=== PATIENT | female | born 1965 | race Caucasian/White ===

== ENCOUNTER → 2022-07-28 | Outpatient (CLI) | payer BC | LOC: COL.VAS 10:00 | DX: Z01.89 Encounter for other specified special examinations (principal) ==

== ENCOUNTER 2022-08-23 10:34 | Day surgery (SDC) | payer BC ==
[~2022-08-23] VITALS: Ht 165.1 cm; Wt 86.4 kg
[2022-08-23 11:53] VITALS: BP 164/72; PULSE 73; TEMP 99
[2022-08-23] MEDS ORDERED: TYLENOL 500MG500 MG PO (11:57)
[2022-08-23] MEDS ORDERED: ZOFRAN 4MG T4 MG/TAB PO (11:57)
[2022-08-23] MEDS ORDERED: NORCO 325 MG-51 TAB (11:58)
[2022-08-23] MEDS ORDERED: ELIQUIS 5MG PO (11:59)
[2022-08-23] MEDS ORDERED: SENNA-LAX8.6 MG PO (11:59)
[2022-08-23] MEDS ORDERED: EFFEXOR 75M75 MG/TAB PO (12:00)
[2022-08-23] MEDS ORDERED: LASIX 20MG TABL20 MG PO (12:02)
[2022-08-23] MEDS ORDERED: TOPROL XL 50MG50 MG PO (12:02)
[2022-08-23] MEDS ORDERED: BASAGLAR K100 UNIT/1 SQ (12:04)
[2022-08-23 12:05] LABS: CALCIUM 8.9 mg/dL (8.4-10.2); CREATININE, serum 4.68 mg/dL (0.57-1.11); POTASSIUM 4.9 mmol/L (3.5-4.5)
[2022-08-23] MEDS ORDERED: COZAAR 50MG50 MG/TAB PO (12:05)
[2022-08-23] MEDS ORDERED: HUMALOG100 U/ML (12:05)
[2022-08-23] MEDS ORDERED: MIRAPEX 0.0.125 MG/T PO (12:06)
[2022-08-23] MEDS ORDERED: PHOS LO PO (12:07)
[2022-08-23] MEDS ORDERED: PRAVACHOL 20MG20 MG PO (12:07)
[2022-08-23 16:08] VITALS: BP 154/59; PULSE 75; TEMP 98.4
--- NOTE | 2022-08-23 16:08 | NUR ---
Pt returned from OR via cart. Pt drowsy but arousable to name. VSS-see flowsheet. Daughter in room upon return. Pt resting with eyes closed and appearing comfortable. Side rails up. Restricted extremity band on left arm. Dressing to СЕРГЕЙ c/d/i. Call light in reach.
[2022-08-23 16:15] VITALS: BP 149/58; PULSE 71
[2022-08-23 16:30] VITALS: BP 159/63; PULSE 70
--- NOTE | 2022-08-23 17:00 | NUR ---
VS remain stable. IV removed after pt tolerating jello and sprite. Changed in to personal clothing. Discharge teaching completed, pt and daughter verbalized understanding. Pt taken via wheelchair to private vehicle for dc home with daughter driving. Pt left with all personal belongings and dc instructions.
== END 2022-08-23 17:00 | disposition home or self-care (01) ==
LOC: SDCO 10:34
PROVIDERS: Surgery
DX: N18.6 End stage renal disease (principal); Z79.01 Long term (current) use of anticoagulants; Z86.718 Personal history of other venous thrombosis and embolism; Z99.2 Dependence on renal dialysis; Z87.891 Personal history of nicotine dependence
CPT/HCPCS: J0690; J1644; J2704; J3010